=== PATIENT | male | born 1990 | race Caucasian/White ===

== ENCOUNTER 2022-10-08 22:09 | Emergency (ER) | payer OTHER, SELFPAY ==
[2022-10-08 22:11] VITALS: BP 131/93
[2022-10-08 22:12] VITALS: BP 131/93; PULSE 84; RESP 26; TEMP 36.4; O2SAT 100; BMI 41.0
--- NOTE | 2022-10-08 22:13 | ED.CHESTPAI1 ---
HPI - Chest Pain General Chief Complaint: Chest Pain Stated Complaint: NAUSEA/VOMITING Time Seen by Provider: 10/08/22 22:13 History of Present Illness HPI narrative: pt brought in via EMS with a complaint of nausea and vomiting. Patient states he has been puking the whole day. He developed chest pain since his been vomiting. He denies any fever, chills. He denies any hematemesis, melena, hematochezia. He denies any diarrhea. States he's never had this happen before. There are no other sick contacts. He denies any headache states that he has been dizzy. He felt like he was in a [id number]. states that he had bilateral ear pain and the last 3 days. And he had complained of upper respiratory infection symptoms also 3 days ago.Dizziness worsens when the patient changes position. He denies any sore throat. He denies any palpitations. He denies any alcohol or drug abuse. Related Data Previous Rx's Medication Instructions Recorded cefdinir 300 mg capsule 300 mg PO Q12H 10 days #20 caps 10/09/22 meclizine 25 mg tablet 25 mg PO TID-QID PRN dizziness 5 10/09/22 days #20 tabs ondansetron HCl 8 mg tablet 8 mg PO TID PRN nausea and 10/09/22 vomiting 5 days #10 tabs Allergies Allergy/AdvReac Type Severity Reaction Status Date / Time Penicillins Allergy Severe Verified 10/08/22 22:12 Review of Systems ROS Status of ROS 10 or more systems reviewed and unremarkable except as noted in history and below Exam Narrative Exam Narrative: Nurses notes and vital signs reviewed and patient is not hypoxic. General: Nontoxic, actively dry heaving and in no apparent distress. Skin: Warm, dry, no pallor noted. No Rash Head: Normocephalic, atraumatic. Neck: Supple, non-tender. Eye: Pupils are equal, round and EOMI. No scleral icterus, No nystagmus Ears, Nose, Mouth, and Throat: TM clear, no posterior oropharynx erythema or nasal mucosal hypertrophy, uvula is mid-line Oral mucosa is moist Cardiovascular: Regular Rate and Rhythm without murmur, gallop or rub. Respiratory: No accessory muscle use or respiratory distress. Lungs are clear to auscultation, no wheezing, rales or rhonchi Chest Wall: no tenderness Back: No midline thoracic or lumbar vertebral tenderness. No CVA tenderness Musculoskeletal: normal ROM, no calf or popliteal tenderness, no lower extremity edema/swelling GI: Abdomen is soft, non-distended. Normal bowel sounds. No masses appreciated. No tenderness to palpation. No rebound, guarding, or rigidity noted. Neurological: A&O x4. No cranial nerve dysfunction observed. No truncal ataxia. Moves all extremities. Sensation intact. Psychiatric: Cooperative and interactive. Anxious Constitutional Vital Signs, click to edit/add: Last Vital Signs Temp 97.6 F 10/08/22 22:12 Pulse 84 10/08/22 22:12 Resp 26 H 10/08/22 22:12 BP 133/91 H 10/09/22 01:07 Pulse Ox 100 10/08/22 22:12 O2 Del Method Room Air 10/08/22 22:12 Course Vital Signs Vital signs: Vital Signs Blood Pressure 131/93 H 10/08/22 22:11 Temperature 97.6 F 10/08/22 22:12 Pulse Rate 84 10/08/22 22:12 Respiratory Rate 26 H 10/08/22 22:12 Blood Pressure 133/91 H 10/09/22 01:07 Pulse Oximetry 100 10/08/22 22:12 Oxygen Delivery Method Room Air 10/08/22 22:12 MDM - Chest Pain MDM Narrative Medical decision making narrative: And had an IV established, lab work was ordered and is unremarkable. CT scan of the brain was done and is negative. Patient was given antiemetics which helped his symptoms. He was also given Valium. The patient was tolerating by mouth he was given Antivert. States he felt much better. All results discussed with patient. Patient is nontoxic, given a prescription for Antivert and Zofran. Advised to continue oral hydration at home. Tympanic membranes are not injected but he has close myringitis bilaterally and dull fluid. He will be given a prescription for Omnicef. At this time the patient is without objective evidence of an acute process requiring hospitalization or inpatient management. The patient has remained hemodynamically stable. No additional indication for emergent studies at this time. I answered all questions. Discussed discharge instructions including standard anticipatory guidance and what should prompt a return to the emergency department, including if they get worse are not getting better or develops any new or concerning symptoms. I've given them specific time frame in which to follow-up, and who to follow-up with. The patient demonstrates understanding. Patient is nontoxic and stable for discharge with outpatient follow-up. This note was created with the assistance of a speech recognition program. Although the intention is to generate documents that actually reflects the content of the visit, no guarantees can be provided that every mistake has been identified and corrected by editing. Lab Data Attestation: I reviewed the patient's lab results. Labs: Lab Results 10/08/22 10/09/22 Range/Units 22:41 01:25 WBC 13.4 H (4.0-11.0) 10^3/uL RBC 5.21 (4.70-6.10) 10^6/uL Hgb 14.9 (14.0-18.0) g/dL Hct 44.9 (42.0-54.0) % MCV 86.2 (80.0-94.0) fL MCH 28.6 (25.9-34.0) pg MCHC 33.2 (29.9-35.2) g/dL RDW 12.5 (11.0-15.0) % Plt Count 224 (150-450) 10^3/uL MPV 11.6 (9.5-13.5) fL Neut % (Auto) 88.6 H (43.0-75.0) % Lymph % (Auto) 8.9 L (20.5-60.0) % Petroleum % (Auto) 1.8 (1.7-12.0) % Eos % (Auto) 0.0 L (0.9-7.0) % Baso % (Auto) 0.4 (0.2-2.0) % Neut # (Auto) 11.8 H (1.4-6.5) 10^3/uL Lymph # (Auto) 1.2 (1.2-3.8) 10^3/uL Petroleum # (Auto) 0.2 L (0.3-0.8) 10^3/uL Eos # (Auto) 0.0 (0.0-0.7) 10^3/uL Baso # (Auto) 0.1 (0.0-0.1) 10^3/uL Abs Immat Gran (auto) 0.04 H (0.00-0.03) 10^3/uL Imm/Tot Granulo (auto) 0.3 (0.0-0.5) % Sodium 139 (136-145) mmol/L Potassium 4.1 (3.5-5.1) mmol/L Chloride 106 (98-107) mmol/L Carbon Dioxide 18.0 L (21.0-32.0) mmol/L Anion Gap 19.1 BUN 15.0 (7.0-18.0) mg/dL Creatinine 0.97 (0.70-1.30) mg/dL Est GFR ( Amer) >60 (>=60) Est GFR (Non-Af Amer) >60 (>=60) BUN/Creatinine Ratio 15.5 Glucose 199 H (74-106) mg/dL Calcium 8.8 (8.5-10.1) mg/dL Total Bilirubin 0.8 (0.2-1.0) mg/dL AST 47 H (15-37) U/L ALT 55 (16-63) U/L Alkaline Phosphatase 74 (46-116) U/L Troponin I High Sens <4.0 L <4.0 L (4.0-76.1) pg/mL Total Protein 7.8 (6.4-8.2) g/dL Albumin 4.1 (3.4-5.0) g/dL Globulin 3.7 g/dL Albumin/Globulin Ratio 1.1 Lipase 47.0 L (73.0-393.0) U/L ECG Data Attestation: I personally reviewed and interpreted this ECG as follows: Heart Score History: Slightly/Non-Suspicious ECG: Normal Age: <45 years Risk Factors: No Risk Factors Troponin: <Normal Limit Total Heart Score Recommendations & Risks:: 0 Discharge Plan Discharge Chief Complaint: Chest Pain Clinical Impression: Vertigo, Nausea & vomiting, Otitis media Patient Disposition: Home, Self-Care Time of Disposition Decision: 01:20 Condition: Good Mode of Transportation: Private Vehicle Prescriptions / Home Meds: New meclizine 25 mg tablet 25 mg PO TID-QID PRN (Reason: dizziness) 5 Days Qty: 20 0RF ondansetron HCl 8 mg tablet 8 mg PO TID PRN (Reason: nausea and vomiting) 5 Days Qty: 10 0RF cefdinir 300 mg capsule 300 mg PO Q12H 10 Days Qty: 20 0RF Instructions: Vertigo (ED), Acute Nausea and Vomiting (ED) Stand Alone Forms: Portal Instructions Referrals: Physician,Non-Staff, MD [Primary Care Provider] - 1 week Discharge Date/Time: 10/09/22 02:32
--- NOTE | 2022-10-08 22:19 | ECG_ITS ---
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
--- NOTE | 2022-10-08 22:19 | XR_ITS ---
The [address] [address] Patient Name: BOBBI CATES MRN: [id number] date: 1990 Sex: M Assigned Patient Location: ED.MAIN Current Patient Location: ER Accession/Order Number: [id number] Exam Date: 10/08/2022 23:59 Report Date: 10/09/2022 00:51 At the request of: MARGOT MACK Procedure: XR chest 1V EXAM: XR chest 1V HISTORY: cp COMPARISON: Chest radiograph dated 11/24/2021. TECHNIQUE: One view of the chest was obtained. FINDINGS: The cardiac silhouette is stable in size. There is stable nonspecific elevation of the right hemidiaphragm. The lungs are clear. There is no significant pneumothorax or pleural effusion. No acute osseous abnormality is seen. XR/XR chest 1V IMPRESSION: 1. No acute cardiopulmonary abnormality. Electronically authenticated by: Odessa MYERS Date: 10/09/2022 00:51
--- NOTE | 2022-10-08 22:21 | CT_ITS ---
The [address] [address] Patient Name: BOBBI CATES MRN: [id number] date: 1990 Sex: M Assigned Patient Location: ER Current Patient Location: Accession/Order Number: [id number] Exam Date: 10/08/2022 23:59 Report Date: 10/09/2022 01:03 At the request of: MARGOT MACK Procedure: CT abdomen pelvis w con EXAM: CT abdomen pelvis w con HISTORY: abd pain COMPARISON: CT abdomen and pelvis examination dated 11/24/2021. TECHNIQUE: Axial CT images through the abdomen and pelvis were obtained after the intravenous administration of 100 mL Omnipaque 300 contrast. Coronal and sagittal reformats were obtained. Dose reduction techniques were achieved by using automated exposure control and/or adjustment of mA and/or kV according to patient size and/or use of iterative reconstruction technique. FINDINGS: There is mild bibasilar atelectasis. There is bilateral gynecomastia. Abdomen: The liver and spleen enhance homogeneously without focal lesion. There is no intra or extrahepatic biliary duct dilatation. The gallbladder is surgically absent. There is a subcentimeter hypodensity in the right kidney which is too small to characterize by CT size criteria. There are scattered colonic diverticula without evidence of acute inflammation. The patient is status post appendectomy. Otherwise, the pancreas, adrenal glands, kidneys, and bowel loops are unremarkable. There is no mesenteric or retroperitoneal lymphadenopathy. Pelvis: The bladder and rectum are unremarkable. There is no iliac or inguinal lymphadenopathy. There are small fat-containing inguinal hernias. Bone windows show no aggressive osseous lesions. CT/CT abdomen pelvis w con IMPRESSION: 1. No specific etiology identified to explain the patient's abdominal pain. 2. Bilateral gynecomastia. 3. Status post cholecystectomy and appendectomy. 4. Colonic diverticula without evidence of acute inflammation. Electronically authenticated by: Odessa MYERS Date: 10/09/2022 01:03
[2022-10-08] MEDS: 0.9 % SODIUM CHLORIDE 1,000 ML 999 ML (22:45)
[2022-10-08] MEDS: ONDANSETRON PF 4 MG/2 ML VIAL IV (22:45)
[2022-10-08 22:50] LABS: Basophils Absolute Auto 0.1 10^3/uL (0.0-0.1); Basophils Percent Auto 0.4 % (0.2-2.0); Hematocrit 44.9 % (42.0-54.0); Hemoglobin 14.9 g/dL (14.0-18.0); Immature Granulocytes Abs Auto 0.04 10^3/uL (0.00-0.03); Immature Granulocytes Pct Auto 0.3 % (0.0-0.5); Lymphocytes Absolute Auto 1.2 10^3/uL (1.2-3.8); Lymphocytes Percent Auto 8.9 % (20.5-60.0); Mean Corpuscular HGB Conc 33.2 g/dL (29.9-35.2); Mean Corpuscular Hemoglobin 28.6 pg (25.9-34.0); Mean Corpuscular Volume 86.2 fL (80.0-94.0); Mean Platelet Volume 11.6 fL (9.5-13.5); Monocytes Absolute Auto 0.2 10^3/uL (0.3-0.8); Monocytes Percent Auto 1.8 % (1.7-12.0); Neutrophils Absolute Auto 11.8 10^3/uL (1.4-6.5); Neutrophils Percent Auto 88.6 % (43.0-75.0); Platelet Count 224 10^3/uL (150-450); Red Blood Count 5.21 10^6/uL (4.70-6.10); Red Cell Distribution Width 12.5 % (11.0-15.0); White Blood Count 13.4 10^3/uL (4.0-11.0)
--- NOTE | 2022-10-08 23:07 | CT_ITS ---
The [address] [address] Patient Name: BOBBI CATES MRN: [id number] date: 1990 Sex: M Assigned Patient Location: ER Current Patient Location: Accession/Order Number: [id number] Exam Date: 10/08/2022 23:59 Report Date: 10/09/2022 00:41 At the request of: MARGOT MACK Procedure: CT head/brain wo con INDICATION: 32 years old; Male. Dizziness since 2:00 PM. TECHNIQUE: CT Head (ax/cor/sag reformats). Ionizing radiation dose reduced via iterative reconstruction/FBP blend and body size kV/mA adjustment. Comparison: None FINDINGS: POSTOPERATIVE CHANGES: None. BRAIN PARENCHYMA: No focal lesions. No mass effect. No midline shift or herniation. No intraparenchymal or extra-axial hemorrhage. Normal paredes/white differentiation. VENTRICLES/EXTRA-AXIAL SPACES: Normal in size for patient's age. SINUSES/MASTOIDS: The visualized sinuses are clear. The frontal sinuses are hypoplastic. Mastoid air cells are clear. MSK: No displaced or depressed calvarial fracture is seen. OTHER: No hyperdense intraluminal thrombus is noted. CT/CT head/brain wo con IMPRESSION: 1. No acute intracranial abnormality. No hemorrhage or mass effect. Electronically authenticated by: BENNETT EVANS Date: 10/09/2022 00:41
[2022-10-08 23:47] LABS: Alanine Aminotransferase 55 U/L (16-63); Albumin Globulin Ratio 1.1; Albumin Level 4.1 g/dL (3.4-5.0); Alkaline Phosphatase 74 U/L (46-116); Anion Gap 19.1; Aspartate Amino Transferase 47 U/L (15-37); BUN Creatinine Ratio 15.5; Bilirubin Total 0.8 mg/dL (0.2-1.0); Calcium 8.8 mg/dL (8.5-10.1); Chloride 106 mmol/L (98-107); Estimated GFR (African America >60 (>=60); Estimated GFR (Non-African Ame >60 (>=60); Globulin 3.7 g/dL; Glucose 199 mg/dL (74-106); Potassium 4.1 mmol/L (3.5-5.1); Sodium 139 mmol/L (136-145); Total Protein 7.8 g/dL (6.4-8.2); Troponin I High Sensitivity <4.0 pg/mL (4.0-76.1)
[2022-10-08] MEDS: PROMETHAZINE HCL 25 MG/ML VIAL IV (23:53)
[2022-10-09] MEDS: DIAZEPAM 5 MG/ML - 2 ML INJ SYRINGE IV (01:00)
[2022-10-09 01:07] VITALS: BP 133/91
[2022-10-09] MEDS: PANTOPRAZOLE SODIUM 40 MG VIAL IV (01:30)
[2022-10-09] MEDS: MECLIZINE HCL 12.5 MG TABLET 25 MG PO (01:36)
[2022-10-09 01:52] LABS: Troponin I High Sensitivity <4.0 pg/mL (4.0-76.1)
== END 2022-10-09 02:32 | disposition home or self-care (01) ==
PROVIDERS: Emergency Provider Emergency Medicine
DX: R42 Dizziness and giddiness (principal); R11.2 Nausea with vomiting, unspecified; R07.9 Chest pain, unspecified; H66.90 Otitis media, unspecified, unspecified ear
CPT/HCPCS: 36415; 70450; 71045; 74177; 80053; 83690; 84484; 85025; 93005; 96374; 96375; 99285; Q9967

== ENCOUNTER 2024-07-25 04:07 | Observation (INO) | payer OTHER, SELFPAY ==
[2024-07-25] VITALS (11 sets, daily range): BP systolic 131–167; BP diastolic 86–102; PULSE 78–98; TEMP 36.4–36.7; O2SAT 90–99; BMI 44.3; BMI 44.5
[2024-07-25] MEDS: KETOROLAC TROMETHAMINE 30 MG/ML VIAL IVP (04:15)
[2024-07-25] MEDS: ONDANSETRON PF 4 MG/2 ML VIAL IV ×3 (04:15→16:17)
[2024-07-25] MEDS: 0.9 % SODIUM CHLORIDE 1,000 ML 999 ML IV ×2 (04:20→06:43)
--- NOTE | 2024-07-25 04:25 | ED.BACK1 ---
HPI HPI - Back Pain/Injury General Chief Complaint: Back Pain/Injury Stated Complaint: FLANK PAIN Time Seen by Provider: 07/25/24 04:24 Source: patient Mode of arrival: walk-in Limitations: no limitations History of Present Illness HPI Narrative: presents complaining of right CVA pain that started around 8PM last night associated with nausea and vomiting. No fever or urinary symptoms. not short of breath Related Data Home Medications ?Medication ?Instructions ?Recorded ?Confirmed duloxetine 60 mg capsule,delayed 60 mg PO DAILY 07/25/24 07/25/24 release (Cymbalta) propranolol 10 mg tablet 10 mg PO Q6H PRN panic attacks 07/25/24 07/25/24 Previous Rx's ?Medication ?Instructions ?Recorded cefdinir 300 mg capsule 300 mg PO Q12H 10 days #20 caps 10/09/22 meclizine 25 mg tablet 25 mg PO TID-QID PRN dizziness 5 10/09/22 days #20 tabs ondansetron HCl 8 mg tablet 8 mg PO TID PRN nausea and 10/09/22 vomiting 5 days #10 tabs Allergies Allergy/AdvReac Type Severity Reaction Status Date / Time Penicillins Allergy Severe rash Verified 07/25/24 04:15 Opioid HPI Opioid Management Most Recent Opioid Data: Last Pain Scale 8 Today, 06:18 Last MAR Pain Assessment Today, 04:15 Review of Systems ROS Status of ROS 10 or more systems reviewed and unremarkable except as noted in history and below PFSH PFSH Social History Little interest or pleasure in doing things: not at all Feeling down, depressed, or hopeless: not at all Exam Constitutional Vital Signs, click to edit/add: Last Vital Signs Temp 98.1 F 07/25/24 04:11 Pulse 98 H 07/25/24 04:11 Resp 14 07/25/24 06:10 BP 142/90 H 07/25/24 06:10 Pulse Ox 96 07/25/24 06:10 O2 Del Method Room Air 07/25/24 04:11 Common normals: healthy appearing, alert and well nourished General appearance: in distress HENMI Common normals: normocephalic and head/scalp atraumatic Eye Common normals: EOMs intact bilaterally and conjunctivae normal Respiratory Common normals: normal respiratory effort, no retractions, no use of accessory muscles and clear to auscultation bilaterally Cardio Common normals: regular rate, regular rhythm, S1 normal heart sound and S2 normal heart sound GI Common normals: Normal to inspection, nondistended, normoactive bowel sounds present, soft to palpation and non-tender Back & Pelvis General back: CVA tenderness CVA tenderness: right Extremity Common normals: normal to inspection and full ROM Neuro Common normals: oriented x3, CN's II-XII intact bilaterally, moves all extremities and no focal motor deficits Psych Appearance: grossly normal Course Vital Signs Vital signs: Vital Signs Temperature 98.1 F 07/25/24 04:11 Pulse Rate 98 H 07/25/24 04:11 Respiratory Rate 22 H 07/25/24 04:11 Blood Pressure 167/100 H 07/25/24 04:11 Pulse Oximetry 98 07/25/24 04:11 Oxygen Delivery Method Room Air 07/25/24 04:11 Temperature 98.1 F 07/25/24 04:11 Pulse Rate 98 H 07/25/24 04:11 Respiratory Rate 14 07/25/24 06:10 Blood Pressure 142/90 H 07/25/24 06:10 Pulse Oximetry 96 07/25/24 06:10 Oxygen Delivery Method Room Air 07/25/24 04:11 MDM - Back Pain/Injury MDM Narrative Medical decision making narrative: patient presents with right flank pain that started last PM associated with nausea and vomiting. CT with finding of 4mm right proximal obstructing stone with moderate right hydronephrosis. He remains in pain despite receiving Toradol, Orphenadrine and morphine. No urine sample yet. Additional fluids and flomax ordered. Care transferred to oncoming physician at change of shift Lab Data Labs: Lab Results 07/25/24 Range/Units 04:18 WBC 18.6 H (4.0-11.0) 10^3/uL RBC 5.14 (4.70-6.10) 10^6/uL Hgb 15.3 (14.0-18.0) g/dL Hct 43.5 (42.0-54.0) % MCV 84.6 (80.0-94.0) fL MCH 29.8 (25.9-34.0) pg MCHC 35.2 (29.9-35.2) g/dL RDW 11.9 (11.0-15.0) % Plt Count 235 (150-450) 10^3/uL MPV 11.0 (9.5-13.5) fL Neut % (Auto) 80.7 H (43.0-75.0) % Lymph % (Auto) 13.0 L (20.5-60.0) % Wise % (Auto) 5.1 (1.7-12.0) % Eos % (Auto) 0.3 L (0.9-7.0) % Baso % (Auto) 0.5 (0.2-2.0) % Neut # (Auto) 15.0 H (1.4-6.5) 10^3/uL Lymph # (Auto) 2.4 (1.2-3.8) 10^3/uL Wise # (Auto) 0.9 H (0.3-0.8) 10^3/uL Eos # (Auto) 0.1 (0.0-0.7) 10^3/uL Baso # (Auto) 0.1 (0.0-0.1) 10^3/uL Abs Immat Gran (auto) 0.07 H (0.00-0.03) 10^3/uL Imm/Tot Granulo (auto) 0.4 (0.0-0.5) % Sodium 137 (136-145) mmol/L Potassium 4.3 (3.5-5.1) mmol/L Chloride 103 (98-107) mmol/L Carbon Dioxide 24.7 (21.0-32.0) mmol/L Anion Gap 13.6 BUN 17.0 (7.0-18.0) mg/dL Creatinine 1.72 H (0.70-1.30) mg/dL Est GFR ( Amer) 55 L (>=60 mL/min/1.73m^2) Est GFR (Non-Af Amer) 46 L (>=60 mL/min/1.73m^2) BUN/Creatinine Ratio 9.9 Glucose 112 H (74-106) mg/dL Lactate 1.1 (0.4-2.0) mmol/L Calcium 9.2 (8.5-10.1) mg/dL Total Bilirubin 0.9 (0.2-1.0) mg/dL AST 22 (15-37) U/L ALT 44 (16-63) U/L Alkaline Phosphatase 80 (46-116) U/L Total Protein 7.8 (6.4-8.2) g/dL Albumin 4.2 (3.4-5.0) g/dL Globulin 3.6 g/dL Albumin/Globulin Ratio 1.2 Lipase 25.0 (16.0-77.0) U/L Discharge Plan Discharge Patient Disposition: Still a Patient
[2024-07-25 04:29] LABS: Basophils Absolute Auto 0.1 10^3/uL (0.0-0.1); Basophils Percent Auto 0.5 % (0.2-2.0); Eosinophils Absolute Auto 0.1 10^3/uL (0.0-0.7); Eosinophils Percent Auto 0.3 % (0.9-7.0); Hematocrit 43.5 % (42.0-54.0); Hemoglobin 15.3 g/dL (14.0-18.0); Immature Granulocytes Abs Auto 0.07 10^3/uL (0.00-0.03); Immature Granulocytes Pct Auto 0.4 % (0.0-0.5); Lymphocytes Absolute Auto 2.4 10^3/uL (1.2-3.8); Mean Corpuscular HGB Conc 35.2 g/dL (29.9-35.2); Mean Corpuscular Hemoglobin 29.8 pg (25.9-34.0); Mean Corpuscular Volume 84.6 fL (80.0-94.0); Monocytes Absolute Auto 0.9 10^3/uL (0.3-0.8); Monocytes Percent Auto 5.1 % (1.7-12.0); Neutrophils Percent Auto 80.7 % (43.0-75.0); Platelet Count 235 10^3/uL (150-450); Red Blood Count 5.14 10^6/uL (4.70-6.10); Red Cell Distribution Width 11.9 % (11.0-15.0); White Blood Count 18.6 10^3/uL (4.0-11.0)
[2024-07-25 04:40] LABS: Alanine Aminotransferase 44 U/L (16-63); Albumin Globulin Ratio 1.2; Albumin Level 4.2 g/dL (3.4-5.0); Alkaline Phosphatase 80 U/L (46-116); Anion Gap 13.6; Aspartate Amino Transferase 22 U/L (15-37); BUN Creatinine Ratio 9.9; Bilirubin Total 0.9 mg/dL (0.2-1.0); Calcium 9.2 mg/dL (8.5-10.1); Carbon Dioxide 24.7 mmol/L (21.0-32.0); Chloride 103 mmol/L (98-107); Estimated GFR (African America 55 (>=60 mL/min/1.73m^2); Estimated GFR (Non-African Ame 46 (>=60 mL/min/1.73m^2); Globulin 3.6 g/dL; Glucose 112 mg/dL (74-106); Potassium 4.3 mmol/L (3.5-5.1); Sodium 137 mmol/L (136-145); Total Protein 7.8 g/dL (6.4-8.2)
[2024-07-25 04:43] LABS: Lactate/Lactic Acid 1.1 mmol/L (0.4-2.0)
--- NOTE | 2024-07-25 04:55 | PC.NURSE ---
Pt continued to rate his pain at a 7-9. Stated more pain meds would be helpful. Obtained order for morphine. Pola it up in the room, went to administer, and pt states, Do I have to take this? Paving Stone Installer stated no, of course not . He is fearful about morphine. Paving Stone Installer educated pt that morphine is warranted for a pain level as high as his, he continues to refuse, but states that his nausea has resolved. aware. ESTRADA received
--- NOTE | 2024-07-25 05:23 | PC.NURSE ---
Pt states pain is tolerable, but the nausea has returned. Re-medicated for nausea.
[2024-07-25] MEDS: MORPHINE SULFATE 4 MG/ML VIAL IV ×2 (05:50→06:18)
[2024-07-25] MEDS: ORPHENADRINE 60 MG/2 ML VIAL IV (06:18)
[2024-07-25] MEDS: TAMSULOSIN HCL 0.4 MG CAPSULE PO ×2 (06:42→13:45)
[2024-07-25] MEDS: HYDROMORPHONE HCL 1 MG/ML CARTRIDGE IVP (06:55)
[2024-07-25] MEDS: METOCLOPRAMIDE HCL 10 MG/2 ML VIAL IVP (07:02)
[2024-07-25] MEDS: CEFTRIAXONE 1,000 MG in 0.9 % SODIUM CHLORIDE 50 ML 100 MG IV (07:40)
[2024-07-25] MEDS: CIPROFLOXACIN IN 5 % DEXTROSE 400 MG/200 ML PREMIX 200 MG IV (08:22)
[2024-07-25 08:36] LABS: Bilirubin Urine NEGATIVE (NEGATIVE); Blood Urine LARGE (NEGATIVE); Clarity Urine CLEAR (CLEAR); Color Urine YELLOW (YELLOW); Glucose Urine UA NEGATIVE (NEGATIVE); Ketones Urine TRACE mg/dL (NEGATIVE); Leukocyte Esterase Urine NEGATIVE (NEGATIVE); Nitrite Urine NEGATIVE (NEGATIVE); Protein Urine NEGATIVE (NEG/TRACE); Urobilinogen Urine 0.2 EU/dL (0.2-1.0)
[2024-07-25 08:42] LABS: Bacteria Urine TRACE #/HPF (NONE SEEN); Mucus Urine TRACE (NONE SEEN); RBC Urine 20-50 #/HPF (0-2); Squamous Epithelial Cell Urine RARE #/LPF (NONE/RARE); WBC Urine 0-2 #/HPF (NONE SEEN)
[2024-07-25 08:43] LABS: Cast Seen? NONE SEEN #/LPF (NONE SEEN); Crystals Seen? None Seen #/HPF (None Seen); Urine Culture Indicated NO
--- NOTE | 2024-07-25 13:18 | PM.HP ---
HPI H&P: HPI History of Present Illness Chief complaint: FLANK PAIN Narrative: 34-year-old male with no significant past medical history presented to ER with acute onset right flank pain that was associated with nausea, vomiting. Pain is more or less persistent with periods Of worsening spasmodic pain. Workup in ED revealed Leukocytosis as well as acute kidney injury. CT abdomen pelvis revealed right-sided hydronephrosis with obstructing 4 mm ureteral calculus. Patient received multiple doses of IV narcotics along with Toradol with no improvement/relief in his pain. His case was discussed with urology on-call who recommended admission under hospitalist service and recommended making patient n.p.o. after midnight for possible surgery tomorrow. At the time of my evaluation, he was relatively comfortable with 3 out of 10 pain. He denies prior history of kidney stones. He is able to urinate. He denies hematuria. Opioid HPI Opioid Management Most Recent Pain and Opioid Data: Last Pain Scale 4 Today, 08:29 Last ED Pain Assessment Today, 08:29 Last MAR Pain Assessment Today, 04:15 Review of Systems ROS Status of ROS 10 or more systems reviewed and unremarkable except as noted in history and below PFSH PFSH Social History Little interest or pleasure in doing things: not at all Feeling down, depressed, or hopeless: not at all Meds Home Medications and Allergies Home Medications ?Medication ?Instructions ?Recorded ?Confirmed ?Type ondansetron HCl 8 mg tablet 8 mg PO TID PRN nausea and 10/09/22 07/25/24 Rx vomiting 5 days #10 tabs diclofenac sodium 1 % topical gel topical 07/25/24 History duloxetine 60 mg capsule,delayed 60 mg PO DAILY 07/25/24 07/25/24 History release (Cymbalta) propranolol 10 mg tablet 10 mg PO Q6H PRN panic attacks 07/25/24 07/25/24 History Allergies Allergy/AdvReac Type Severity Reaction Status Date / Time Penicillins Allergy Severe rash Verified 07/25/24 04:15 Exam Constitutional Vital Signs, click to edit/add: Last Vital Signs Temp 98.1 F 07/25/24 04:11 Pulse 84 07/25/24 11:56 Resp 18 07/25/24 11:56 BP 138/87 07/25/24 11:56 Pulse Ox 99 07/25/24 11:56 O2 Del Method Room Air 07/25/24 04:11 Documenting provider has reviewed patient's vital signs: yes Common normals: no apparent distress and oriented x3 General appearance: cooperative HENMT Common normals: normocephalic and head/scalp atraumatic Head and scalp: normocephalic and atraumatic Eye Common normals: conjunctivae normal and no scleral icterus Conjunctiva: conjunctiva(e) normal Respiratory Common normals: normal respiratory effort and clear to auscultation bilaterally Effort & inspection: able to speak in complete sentences Auscultation: clear to auscultation bilaterally Cardio Common normals: regular rate, S1 normal heart sound and S2 normal heart sound Rate: regular rate Heart sounds: S1 normal and S2 normal GI Common normals: Normal to inspection, nondistended, normoactive bowel sounds present, soft to palpation, non-tender and no hepatosplenomegaly Palpation: soft and no hepatosplenomegaly Back & Pelvis General back: CVA tenderness CVA tenderness: right Extremity Common normals: no clubbing, cyanosis or edema Neuro Common normals: oriented x3, moves all extremities and no focal motor deficits Psych Common normals: mental status grossly normal, denies hallucinations, denies homicidal ideation and denies suicidal ideation Results Labs Labs: Short CBC 07/25/24 Range/Units 04:18 WBC 18.6 H (4.0-11.0) 10^3/uL Hgb 15.3 (14.0-18.0) g/dL Hct 43.5 (42.0-54.0) % Plt Count 235 (150-450) 10^3/uL BMP 07/25/24 04:18 Sodium 137 Potassium 4.3 Chloride 103 Carbon Dioxide 24.7 BUN 17.0 Creatinine 1.72 H Glucose 112 H Calcium 9.2 Liver Function 07/25/24 Range/Units 04:18 Total Bilirubin 0.9 (0.2-1.0) mg/dL AST 22 (15-37) U/L ALT 44 (16-63) U/L Alkaline Phosphatase 80 (46-116) U/L Albumin 4.2 (3.4-5.0) g/dL Urine 07/25/24 Range/Units 08:23 Urine Color Yellow (YELLOW) Urine Clarity Clear (CLEAR) Urine pH 7.0 (5.0-9.0) Ur Specific Phillips 1.020 (1.005-1.025) Urine Protein Negative (NEG/TRACE) mg/dL Urine Glucose (UA) Negative (NEGATIVE) mg/dL Assessment and Plan Assessment and Plan (1) Ureteral stone with hydronephrosis: (2) BISHNU (acute kidney injury): (3) Hydronephrosis of right kidney: (4) Renal colic: (5) UTI (urinary tract infection): Qualifiers: Urinary tract infection type: acute cystitis Hematuria presence: without hematuria Qualified Code(s): N30.00 - Acute cystitis without hematuria (6) Nausea & vomiting: Qualifiers: Vomiting type: unspecified Qualified Code(s): R11.2 - Nausea with vomiting, unspecified (7) Leukocytosis: Qualifiers: Leukocytosis type: leukemoid reaction Qualified Code(s): D72.823 - Leukemoid reaction Plan Patient presented with right flank pain and associated nausea, vomiting. Workup revealed right-sided ureteral stone resulting in hydronephrosis and acute kidney injury. Patient required multiple doses of IV narcotics in ED. Patient is now reasonably controlled but patient will require overnight monitoring and observation for pain control and possible urological intervention. Continue with IV hydration. Started patient on IV Levaquin for UTI associated with ureteral stone. Monitor urine output, serum creatinine closely. Acute kidney injury likely secondary to obstructing ureteral stone along with dehydration from nausea/vomiting. Leukocytosis likely due to UTI along with dehydration. Follow-up blood and urine cultures. N.p.o. after midnight. Added Flomax to help pass ureteral stone. On combination of oral/IV narcotic as needed for pain.
[2024-07-25] MEDS: HEPARIN SODIUM (PORCINE) 5,000 UNIT/ML VIAL 5000 UNIT SUBQ ×2 (13:45→21:00)
[2024-07-25] MEDS: LACTATED RINGER'S SOLUTION 1,000 ML 100 ML IV ×2 (13:45→22:39)
[2024-07-25] MEDS: MORPHINE SULFATE 2 MG/ML SYRINGE IV (16:17)
[2024-07-25] MEDS: HYDROMORPHONE HCL 1 MG/ML CARTRIDGE 2 MG IV (17:04)
[2024-07-25] MEDS: LEVOFLOXACIN IN DEXTROSE 5 % 750 MG/150 ML PREMIX 100 MG IV (19:05)
[2024-07-25] MEDS: PROCHLORPERAZINE 10 MG/2 ML VIAL IV (20:54)
[2024-07-25] MEDS: HYDROMORPHONE HCL 0.5 MG/0.5 ML SYRINGE 1 MG IV (22:05)
[2024-07-26] VITALS (15 sets, daily range): BP systolic 116–169; BP diastolic 79–109; PULSE 88–113; TEMP 36.6–37.1; O2SAT 92–98
[2024-07-26] MEDS: HYDROMORPHONE HCL 0.5 MG/0.5 ML SYRINGE 1 MG IV (03:19)
[2024-07-26] MEDS: HEPARIN SODIUM (PORCINE) 5,000 UNIT/ML VIAL 5000 UNIT SUBQ ×2 (05:16→15:38)
[2024-07-26] MEDS: ONDANSETRON PF 4 MG/2 ML VIAL IV (05:16)
[2024-07-26 06:30] LABS: Basophils Percent Auto 0.3 % (0.2-2.0); Eosinophils Percent Auto 0.2 % (0.9-7.0); Hemoglobin 13.6 g/dL (14.0-18.0); Immature Granulocytes Abs Auto 0.02 10^3/uL (0.00-0.03); Immature Granulocytes Pct Auto 0.2 % (0.0-0.5); Lymphocytes Absolute Auto 2.1 10^3/uL (1.2-3.8); Lymphocytes Percent Auto 21.8 % (20.5-60.0); Mean Corpuscular HGB Conc 33.2 g/dL (29.9-35.2); Mean Corpuscular Hemoglobin 29.2 pg (25.9-34.0); Mean Corpuscular Volume 88.2 fL (80.0-94.0); Mean Platelet Volume 11.6 fL (9.5-13.5); Monocytes Absolute Auto 0.8 10^3/uL (0.3-0.8); Monocytes Percent Auto 7.9 % (1.7-12.0); Neutrophils Absolute Auto 6.7 10^3/uL (1.4-6.5); Neutrophils Percent Auto 69.6 % (43.0-75.0); Platelet Count 166 10^3/uL (150-450); Red Blood Count 4.65 10^6/uL (4.70-6.10); Red Cell Distribution Width 11.9 % (11.0-15.0); White Blood Count 9.6 10^3/uL (4.0-11.0)
[2024-07-26 06:48] LABS: Alanine Aminotransferase 192 U/L (16-63); Albumin Globulin Ratio 0.9; Albumin Level 3.1 g/dL (3.4-5.0); Alkaline Phosphatase 93 U/L (46-116); Anion Gap 13.4; Aspartate Amino Transferase 93 U/L (15-37); BUN Creatinine Ratio 8.1; Calcium 8.4 mg/dL (8.5-10.1); Carbon Dioxide 25.5 mmol/L (21.0-32.0); Chloride 103 mmol/L (98-107); Estimated GFR (African America 44 (>=60 mL/min/1.73m^2); Estimated GFR (Non-African Ame 36 (>=60 mL/min/1.73m^2); Globulin 3.6 g/dL; Glucose 97 mg/dL (74-106); Potassium 3.9 mmol/L (3.5-5.1); Sodium 138 mmol/L (136-145); Total Protein 6.7 g/dL (6.4-8.2)
[2024-07-26] MEDS: LACTATED RINGER'S SOLUTION 1,000 ML 100 ML IV ×3 (08:09→15:37)
[2024-07-26] MEDS: TAMSULOSIN HCL 0.4 MG CAPSULE PO (08:09)
[2024-07-26] MEDS: HYDROMORPHONE HCL 1 MG/ML CARTRIDGE IV (09:20)
--- NOTE | 2024-07-26 10:15 | CM.NOTE ---
Rounds made with Dr. Brush, pt will go to OR today at 1:00 for kidney stone and stent placement. Pt will discharge after procedure and f/u urology and PCP. Pt also will have order for Chem 8 to f/u on kidney function after procedure and f/u with PCP.
[2024-07-26] MEDS: FAMOTIDINE/PF 20 MG/2 ML VIAL IV (12:52)
--- NOTE | 2024-07-26 13:07 | PM.URCN ---
Urology - CN: HPI Date of Consult Patient: new to practice Requesting Physician: Shaikh oGnsalo MD Primary Care Provider: Non-Staff Physician, Consult Narrative Narrative: Patient is a 34-year-old male who presented with right-sided flank pain. CT obtained on admission showed an obstructing right proximal to mid ureteral stone approximately 5 mm in size with hydronephrosis and perinephric stranding. He currently notes right-sided flank pain radiating to the groin. He denies any prior history of nephrolithiasis. No family history of nephrolithiasis. Denies any fevers, chills, nausea or vomiting. UA does not show any signs consistent with infection. cc:: CC: Shaikh Gonsalo MD Review of Systems ROS Status of ROS: 10 or more systems reviewed and unremarkable except as noted in history and below PFSH PFSH Social History Highest level of school completed/degree received: Bachelor's degree Little interest or pleasure in doing things: not at all Feeling down, depressed, or hopeless: not at all Meds Home Medications and Allergies Home Medications ?Medication ?Instructions ?Recorded ?Confirmed ?Type ondansetron HCl 8 mg tablet 8 mg PO TID PRN nausea and 10/09/22 07/25/24 Rx vomiting 5 days #10 tabs duloxetine 60 mg capsule,delayed 60 mg PO DAILY 07/25/24 07/25/24 History release (Cymbalta) propranolol 10 mg tablet 10 mg PO Q6H PRN panic attacks 07/25/24 07/25/24 History Allergies Allergy/AdvReac Type Severity Reaction Status Date / Time Penicillins Allergy Severe rash Verified 07/25/24 04:15 Exam Narrative Exam Narrative: General: Alert and oriented x 3, Cardiovascular: Regular rhythm Lungs: Nonlabored breathing on room air Abdomen: Soft, nontender, nondistended with no guarding or rigidity noted : Right CVA tenderness Skin: Warm and dry Extremities: No peripheral edema noted Constitutional Vital Signs, click to edit/add: Last Vital Signs Temp 98.5 F 07/26/24 11:29 Pulse 92 H 07/26/24 11:29 Resp 16 07/26/24 07:10 BP 123/85 07/26/24 11:29 Pulse Ox 98 07/26/24 11:32 O2 Del Method Nasal Cannula 07/26/24 11:32 O2 Flow Rate 2 07/26/24 11:32 Results Labs Labs: Short CBC 07/26/24 Range/Units 05:53 WBC 9.6 (4.0-11.0) 10^3/uL Hgb 13.6 L (14.0-18.0) g/dL Hct 41.0 L (42.0-54.0) % Plt Count 166 (150-450) 10^3/uL BMP 07/26/24 05:53 Sodium 138 Potassium 3.9 Chloride 103 Carbon Dioxide 25.5 BUN 17.0 Creatinine 2.10 H Glucose 97 Calcium 8.4 L Liver Function 07/26/24 Range/Units 05:53 Total Bilirubin 1.0 (0.2-1.0) mg/dL AST 93 H (15-37) U/L ALT 192 H (16-63) U/L Alkaline Phosphatase 93 (46-116) U/L Albumin 3.1 L (3.4-5.0) g/dL Urology Assessment and Plan Assessment and Plan (1) Ureteral stone with hydronephrosis: Assessment and Plan: Will proceed to the OR for cystoscopy, right ureteroscopy, right ureteral stent placement Patient can be discharged home afterwards Will plan on patient removing stent by pulling string Discharge patient home with Pyridium, Levsin, Flomax for stent discomfort. Roxicodone for breakthrough pain. Patient can take Tylenol and ibuprofen for pain Follow-up in the office in 4 to 6 weeks with renal ultrasound, KUB prior to office appointment Trend creatinine, replete electrolytes as needed (2) BISHNU (acute kidney injury): Assessment and Plan: Trend creatinine (3) Hydronephrosis of right kidney: Assessment and Plan: Will place stent (4) Renal colic: Assessment and Plan: Secondary to obstructing stone. Will relieve with stent (5) UTI (urinary tract infection): Qualifiers: Urinary tract infection type: acute cystitis Hematuria presence: without hematuria Qualified Code(s): N30.00 - Acute cystitis without hematuria (6) Nausea & vomiting: Qualifiers: Vomiting type: unspecified Qualified Code(s): R11.2 - Nausea with vomiting, unspecified (7) Leukocytosis: Qualifiers: Leukocytosis type: leukemoid reaction Qualified Code(s): D72.823 - Leukemoid reaction Plan Patient presented with right flank pain and associated nausea, vomiting. Workup revealed right-sided ureteral stone resulting in hydronephrosis and acute kidney injury. Patient required multiple doses of IV narcotics in ED. Patient is now reasonably controlled but patient will require overnight monitoring and observation for pain control and possible urological intervention. Continue with IV hydration. Started patient on IV Levaquin for UTI associated with ureteral stone. Monitor urine output, serum creatinine closely. Acute kidney injury likely secondary to obstructing ureteral stone along with dehydration from nausea/vomiting. Leukocytosis likely due to UTI along with dehydration. Follow-up blood and urine cultures. N.p.o. after midnight. Added Flomax to help pass ureteral stone. On combination of oral/IV narcotic as needed for pain.
--- NOTE | 2024-07-26 14:38 | P.URON_ITS ---
Urology Surgery Operative Note Operative Note Procedure Date: 07/26/24 Pre-op Diagnosis: Right proximal ureteral stone Post-op Diagnosis: same as pre-op Procedures performed: Cystoscopy, ureteral dilation, ureteral stent placement?right side Anesthesia: RICK Primary Surgeon: Heriberto Gilbert Complications: None Findings: Successful placement of 6 x 26 cm double-J ureteral stent, no abnormality seen in bladder Specimens: None Drains: 6 x 26 cm double-J ureteral stent Indications for Procedures: Patient is a 34-year-old male presenting with right-sided flank pain. CT abdomen pelvis showed a obstructing right proximal ureteral stone and he presents with a forementioned procedure. H&P was reviewed, informed consent was obtained, patient understood risk, benefits, alternatives of the procedure and wished to proceed. Detailed description of Procedure: Patient was brought to the operative suite and placed on continuous pulse oximetry and cardiac monitoring by anesthesia. IV antibiotics including 2 g of Ancef was administered. He was then placed in the dorsolithotomy position and prepped and draped in normal sterile fashion. Timeout was performed confirming patient, procedure, side, all in the room agreed. A well-lubricated 22 Upper [place] cystoscopic sheath with a 30 degree lens was inserted into the urethral meatus and advanced into the bladder. Upon entering the bladder we directed attention to the right ureteral orifice which we cannulated with a Glidewire up to the collecting system. We then passed a second wire up. Then over one of the wires we attempted to go up with a flexible scope but the distal ureter was quite tight. At this time, the decision was made to place a stent and a 6 x 26 cm double-J ureteral stent was placed under fluoroscopic guidance. A curl in the bladder and a curl in the kidney was noted. This concluded the procedure. Patient bladder was then emptied. Patient was then awakened by anesthesia and transferred to PACU in stable condition. Plan: Patient coming discharge home on Flomax, Pyridium, Levsin for stent discomfort. He will follow-up with me on Wednesday for definitive stone treatment. Other Provider present: No
--- NOTE | 2024-07-26 23:37 | PM.DS1 ---
DS: Providers Provider Date of admission: 07/25/24 13:19 Primary care physician: Non-Staff Physician, Admitting clinician: Shaikh Gonsalo Attending physician on admission: Shaikh Gonsalo Consults: 07/25/24 17:43 Consult to Urology Routine Consulting Provider: Ney Perez Reason for consultation: stones Attending physician on discharge: Shaikh Gonsalo Discharging clinician: Shaikh Gonsalo Anticipated date of discharge: 07/26/24 DS: Diagnosis Discharge Diagnosis (1) Ureteral stone with hydronephrosis: (2) BISHNU (acute kidney injury): (3) Hydronephrosis of right kidney: (4) Renal colic: (5) UTI (urinary tract infection): Qualifiers: Urinary tract infection type: acute cystitis Hematuria presence: without hematuria Qualified Code(s): N30.00 - Acute cystitis without hematuria (6) Nausea & vomiting: Qualifiers: Vomiting type: unspecified Qualified Code(s): R11.2 - Nausea with vomiting, unspecified (7) Leukocytosis: Qualifiers: Leukocytosis type: leukemoid reaction Qualified Code(s): D72.823 - Leukemoid reaction DS: Summary Hospital Course Hospital Course: 34-year-old male with no significant past medical history presented to ER with acute onset right flank pain that was associated with nausea, vomiting. Pain is more or less persistent with periods Of worsening spasmodic pain. Workup in ED revealed Leukocytosis as well as acute kidney injury. CT abdomen pelvis revealed right-sided hydronephrosis with obstructing 4 mm ureteral calculus. Patient received multiple doses of IV narcotics along with Toradol with no improvement/relief in his pain. Patient was admitted overnight and was treated with IV hydration, IV Dilaudid as needed for pain. Patient was evaluated by Urology and underwent Cystoscopy, ureteral dilation, right ureteral stent placement. Patient was cleared for discharge post operatively and will be discharged on Flomax, Pyridium and Levsin. Of note, patient was instructed to have BMP checked in one week to ensure his BISHNU improves as his renal function was slightly worse on morning labs. Patient was instructed to f/u with PCP and Urology in 1-2 weeks Status at Discharge Functional status at discharge: independent ambulation Overall status at discharge: patient is progressing back to baseline Time Spent with Patient Time attestation: Total time spent providing and/or coordinating discharge services: Exam Constitutional Vital Signs, click to edit/add: Last Vital Signs Temp 98.4 F 07/26/24 15:28 Pulse 102 H 07/26/24 15:28 Resp 16 07/26/24 15:28 BP 153/95 H 07/26/24 15:28 Pulse Ox 92 L 07/26/24 15:28 O2 Del Method Room Air 07/26/24 15:28 O2 Flow Rate 2 07/26/24 14:25 Documenting provider has reviewed patient's vital signs: yes Common normals: no apparent distress and oriented x3 General appearance: cooperative Respiratory Common normals: normal respiratory effort and clear to auscultation bilaterally Effort & inspection: able to speak in complete sentences Auscultation: clear to auscultation bilaterally Cardio Common normals: regular rate, S1 normal heart sound and S2 normal heart sound Rate: regular rate Heart sounds: S1 normal and S2 normal GI Common normals: Normal to inspection, nondistended, normoactive bowel sounds present, soft to palpation, non-tender and no hepatosplenomegaly Palpation: soft and no hepatosplenomegaly Back & Pelvis General back: CVA tenderness CVA tenderness: right Extremity Common normals: no clubbing, cyanosis or edema Neuro Common normals: oriented x3, moves all extremities and no focal motor deficits Psych Common normals: mental status grossly normal, denies hallucinations, denies homicidal ideation and denies suicidal ideation DS: Data Data Completed and Pending Labs on day of discharge: Labs from last 24 hours 07/26/24 05:53 WBC 9.6 RBC 4.65 L Hgb 13.6 L Hct 41.0 L MCV 88.2 MCH 29.2 MCHC 33.2 RDW 11.9 Plt Count 166 MPV 11.6 Neut % (Auto) 69.6 Lymph % (Auto) 21.8 Park % (Auto) 7.9 Eos % (Auto) 0.2 L Baso % (Auto) 0.3 Neut # (Auto) 6.7 H Lymph # (Auto) 2.1 Park # (Auto) 0.8 Eos # (Auto) 0.0 Baso # (Auto) 0.0 Abs Immat Gran (auto) 0.02 Imm/Tot Granulo (auto) 0.2 Sodium 138 Potassium 3.9 Chloride 103 Carbon Dioxide 25.5 Anion Gap 13.4 BUN 17.0 Creatinine 2.10 H Est GFR ( Amer) 44 L Est GFR (Non-Af Amer) 36 L BUN/Creatinine Ratio 8.1 Glucose 97 Calcium 8.4 L Total Bilirubin 1.0 AST 93 H ALT 192 H Alkaline Phosphatase 93 Total Protein 6.7 Albumin 3.1 L Globulin 3.6 Albumin/Globulin Ratio 0.9 Discharge Plan Discharge Disposition: Home, Self-Care Discharge Medications: New tamsulosin [Flomax] 0.4 mg capsule 0.4 mg PO DAILY Qty: 14 0RF hyoscyamine sulfate [Levsin/SL] 0.125 mg tablet, sublingual 0.125 mg PO Q8H PRN (Reason: bladder spasms) Qty: 20 0RF phenazopyridine [Pyridium] 100 mg tablet 100 mg PO Q8H PRN (Reason: bladder spasms) Qty: 20 0RF levofloxacin 750 mg tablet 750 mg PO DAILY 5 Days Qty: 5 0RF Continued ondansetron HCl 8 mg tablet 8 mg PO TID PRN (Reason: nausea and vomiting) 5 Days Qty: 10 0RF propranolol 10 mg tablet 10 mg PO Q6H PRN (Reason: panic attacks) duloxetine [Cymbalta] 60 mg capsule,delayed release(DR/EC) 60 mg PO DAILY Activity: increase activity as tolerated Diet: advance to your usual diet Print Language: Lithuanian Patient Instructions: Phenazopyridine (By mouth), Hyoscyamine (By mouth), Levofloxacin (By mouth), Tamsulosin (By mouth), Acute Kidney Injury (DC), Urinary Tract Infection in Men (DC), Hydronephrosis (DC), Ureteral Stones (DC), Urethral Stent Placement (DC) Forms: Portal Instructions Follow Up Appointments: WednesdayAugust 01 pt has surgery at [facility] at 3:15pm for stone removal, please arrive at 1:15pm. [facility] will call with more details. Any questions please call the office at [phone]. August 01 @ 1pm with [facility] [phone]. Discharge Date/Time: 07/26/24 17:20
--- NOTE | 2024-07-27 14:39 | CM.DCFOLLOWU ---
Person spoke with:patient How are you feeling? well, as to be expected How is your pain? ok Did you understand your discharge instructions?yes Do you have any questions about your discharge instructions?yes, had question about medication. Advised that will need to ask a nurse and call him back Were you given any prescriptions at discharge?yes Were you able to get your prescriptions filled?yes Do you understand how to take your medications as ordered?yes Do you have any questions about your follow up appointment and do you plan to keep your follow up appointment? no questions. He call Ysabel MCGOVERN and re-scheduled his follow up Is there anything else that you would like to discuss?no Questions/Comments/Concerns/Other:none
--- NOTE | 2024-07-27 14:51 | SWNOTE1 ---
Spoke to nurse that discharged pt and she was able to educate SW on the difference of the medications. She voiced she did educate pt and before pt was discharged. SW called pt back and re-educated him on the 2 medications.
== END 2024-07-26 17:20 | disposition home or self-care (01) ==
LOC: ER 12:27 → MS 13:27
PROVIDERS: Student in an Organized Health Care Education/Training Program; Admitting Provider Internal Medicine; Emergency Provider Internal Medicine; Visit Provider Internal Medicine
PROC: (CPT 910; principal; 2024-07-26 13:00)
DX: N13.6 Pyonephrosis (principal); N17.9 Acute kidney failure, unspecified; R11.2 Nausea with vomiting, unspecified; D72.823 Leukemoid reaction; E86.0 Dehydration; E66.01 Morbid (severe) obesity due to excess calories; Z68.41 Body mass index [BMI] 40.0-44.9, adult; Z90.49 Acquired absence of other specified parts of digestive tract
CPT/HCPCS: 52332; 36415; 74176; 76000; 80053; 81001; 83605; 83690; 85025; 87040; 94761; 96361; 96365; 96366; 96367; 96372; 96375; 96376; 99285; G0378; J0696; J0744; J0780; J1100; J1171; J1644; J1885; J2250; J2270; J2360; J2405; J2704; J2765; J3010; J3490

== ENCOUNTER 2024-07-28 07:00 | Outpatient (OUT) | payer OTHER, SELFPAY ==
[2024-07-28 08:05] LABS: Anion Gap 9.1; BUN Creatinine Ratio 11.7; Calcium 8.8 mg/dL (8.5-10.1); Carbon Dioxide 30.5 mmol/L (21.0-32.0); Chloride 103 mmol/L (98-107); Estimated GFR (African America >60 (>=60 mL/min/1.73m^2); Estimated GFR (Non-African Ame >60 (>=60 mL/min/1.73m^2); Glucose 94 mg/dL (74-106); Potassium 3.6 mmol/L (3.5-5.1); Sodium 139 mmol/L (136-145)
== END 2024-07-28 07:01 | disposition home or self-care (01) ==
LOC: LAB 07:03
PROVIDERS: Visit Provider Internal Medicine
DX: N17.9 Acute kidney failure, unspecified (principal)
CPT/HCPCS: 36415; 80048